=== PATIENT | male | born 1965 | race Caucasian/White ===

== ENCOUNTER 2016-06-16 11:47 | Emergency (ER) | payer SELFPAY ==
[~2016-06-16] VITALS: Ht 185.4 cm; Wt 80.1 kg
[~2016-06-16 11:47] MED LIST: ANAPROX DS550 M1 PO; HYDROCODON-ACE1 EAC7 PO
[2016-06-16 12:57] LABS: HEMATOCRIT 53.1 % (38.0-50.0); MCH 30.5 PG (29.0-34.0); MCV 92.5 FL (86-99); MEAN PLAT.VOLUME 9.9 uM^3 (9.0-12.4); PLATELET COUNT 295 K/uL (156-360); RBC DIS.WIDTH-CV 14.3 % (11.8-14.6); RBC DIS.WIDTH-SD 49.1 % (39-53); RED BLOOD COUNT 5.74 M/uL (4.00-5.50); WHITE BLOOD COUNT 13.1 K/uL (4.1-10.2)
[2016-06-16 13:06] LABS: CHLORIDE 102 mEq/L (99-109); POTASSIUM 4.4 mEq/L (3.7-5.4); SODIUM 136 mEq/L (136-147)
[2016-06-16 13:08] LABS: GLUCOSE 129 mg/dL (70-99)
[2016-06-16 13:09] LABS: ANION GAP 21 MEQ/L (2-14)
[2016-06-16 13:11] LABS: GFR ESTIMATE (CALCULATED) 45 mL/min/
[2016-06-16 13:12] LABS: UREA NITROGEN (BUN) 17 mg/dL (9-23)
[2016-06-16] MEDS ORDERED: OMEPRAZOLE40 M1 PO (13:16)
[2016-06-16 13:22] LABS: TROP-I INTERPRETATION NEGATIVE; TROPONIN-I < 0.01 ng/mL (0.0-0.30)
[2016-06-16 14:55] LABS: AMYLASE 37 IU/L (1-118)
[2016-06-16 15:04] LABS: LIPASE 21 U/L (1.0-51.0)
[2016-06-16 17:09] LABS: CHLORIDE 110 mEq/L (99-109); POTASSIUM 4.7 mEq/L (3.7-5.4); SODIUM 136 mEq/L (136-147)
[2016-06-16 17:11] LABS: GLUCOSE 69 mg/dL (70-99)
[2016-06-16 17:12] LABS: ANION GAP 10 MEQ/L (2-14)
[2016-06-16 17:14] LABS: GFR ESTIMATE (CALCULATED) > 59 mL/min/
[2016-06-16 17:15] LABS: UREA NITROGEN (BUN) 14 mg/dL (9-23)
[2016-06-16 18:22] VITALS: BP 162/95
== END 2016-06-16 18:24 | disposition home or self-care (01) ==
LOC: EME 11:47
PROVIDERS: Nurse Practitioner Family
DX: R11.2 Nausea with vomiting, unspecified (principal); E86.0 Dehydration; K25.9 Gastric ulcer, unspecified as acute or chronic, without hemorrhage or perforation; F17.200 Nicotine dependence, unspecified, uncomplicated
CPT/HCPCS: 71020; 74176; 80048; 80048 91; 82150; 83690; 84484; 85027; 93005; 99281; 99285; J2405; J7030

== ENCOUNTER 2016-07-08 19:21 | Emergency (ER) | payer SELFPAY ==
[~2016-07-08] VITALS: Ht 185.4 cm; Wt 79.7 kg
[~2016-07-08 19:21] MED LIST changes: +OMEPRAZOLE40 M1 PO
[2016-07-08] MEDS ORDERED: VIBRAMYCIN100 MG PO (20:07)
[2016-07-08 20:40] VITALS: BP 113/84
== END 2016-07-08 20:41 | disposition home or self-care (01) ==
LOC: EME 19:21
DX: S50.861A Insect bite (nonvenomous) of right forearm, initial encounter (principal); L08.9 Local infection of the skin and subcutaneous tissue, unspecified; W57.XXXA Bitten or stung by nonvenomous insect and other nonvenomous arthropods, initial encounter; F17.200 Nicotine dependence, unspecified, uncomplicated
CPT/HCPCS: 99281; 99283

== ENCOUNTER 2017-01-27 16:00 | Emergency (ER) | payer SELFPAY ==
[~2017-01-27] VITALS: Ht 185.4 cm; Wt 76.0 kg
[~2017-01-27 16:00] MED LIST changes: +VIBRAMYCIN100 MG PO
[2017-01-27 17:28] LABS: HEMATOCRIT 52.4 % (38.0-50.0); MCH 33.6 PG (29.0-34.0); MCHC 35.7 G/DL (30.0-36.0); MCV 94.1 FL (86-99); MEAN PLAT.VOLUME 9.4 uM^3 (9.0-12.4); PLATELET COUNT 246 K/uL (156-360); RBC DIS.WIDTH-CV 12.9 % (11.8-14.6); RBC DIS.WIDTH-SD 44.6 % (39-53); RED BLOOD COUNT 5.57 M/uL (4.00-5.50); WHITE BLOOD COUNT 8.6 K/uL (4.1-10.2)
[2017-01-27 17:36] LABS: CHLORIDE 107 mEq/L (99-109); POTASSIUM 3.9 mEq/L (3.7-5.4); SODIUM 141 mEq/L (136-147)
[2017-01-27 17:38] LABS: GLUCOSE 100 mg/dL (70-99)
[2017-01-27 17:40] LABS: ANION GAP 11 MEQ/L (2-14); TOTAL BILIRUBIN 0.3 mg/dL (0.0-1.0)
[2017-01-27 17:42] LABS: ALKALINE PHOSPHATASE 104 IU/L (3-129); GFR ESTIMATE (CALCULATED) > 59 mL/min/
[2017-01-27 17:43] LABS: UREA NITROGEN (BUN) 6 mg/dL (9-23)
[2017-01-27 17:45] LABS: LIPASE 52 U/L (1.0-51.0)
[2017-01-27 17:45] LABS: ADD MIUA? YES; BILIRUBIN NEGATIVE; BLOOD SMALL; COLOR COLORLESS ((YELLOW)); GLUCOSE (STRIP) NEGATIVE; KETONES NEGATIVE; LEUKOCYTES NEGATIVE; NITRITE NEGATIVE; PROTEIN (STRIP) NEGATIVE; SPECIFIC GRAVITY 1.002 (1.000-1.030); UROBILINOGEN 0.2 MG/DL (0.2-1.0)
[2017-01-27 17:48] LABS: TROP-I INTERPRETATION NEGATIVE; TROPONIN-I < 0.01 ng/mL (0.0-0.30)
[2017-01-27 18:02] LABS: BACTERIA RARE /HPF; EPITHELIAL CELLS NONE SEEN /HPF; MUCUS NONE SEEN /LPF; RED BLOOD CELLS 0-5 /HPF (0-5); WHITE BLOOD CELLS 0-5 /HPF (0-5)
[2017-01-27] MEDS ORDERED: KEFLEX500 MG PO (20:02)
[2017-01-27] MEDS ORDERED: NEXIUM40 MG PO (20:02)
[2017-01-27 20:11] LABS: TROP-I INTERPRETATION NEGATIVE; TROPONIN-I < 0.01 ng/mL (0.0-0.30)
[2017-01-27 20:14] VITALS: BP 126/84
[2017-01-28 10:45] LABS: POC NON-PRINT COM 1 ND
== END 2017-01-27 20:22 | disposition home or self-care (01) ==
LOC: EME 16:00
PROVIDERS: Nurse Practitioner Family
DX: K92.2 Gastrointestinal hemorrhage, unspecified (principal); R07.89 Other chest pain; N30.90 Cystitis, unspecified without hematuria; F10.20 Alcohol dependence, uncomplicated; K57.30 Diverticulosis of large intestine without perforation or abscess without bleeding; F17.210 Nicotine dependence, cigarettes, uncomplicated
CPT/HCPCS: 71020; 74177; 80053; 81003; 82272; 83605; 83690; 84484; 85027; 86850; 86900; 86901; 93005; 99281; 99285